=== PATIENT | female | born 1970 | race African-American/Black ===

== ENCOUNTER 2021-04-21 09:49 | Outpatient (CLI) | payer OTHER | END 2021-04-21 09:50 | disposition home or self-care (01) | LOC: DTY/OP 09:49 | PROVIDERS: ATTEND Specialist | DX: Z01.818 Encounter for other preprocedural examination (principal); E66.01 Morbid (severe) obesity due to excess calories; Z71.3 Dietary counseling and surveillance | CPT/HCPCS: 97802 ==

== ENCOUNTER 2021-12-02 10:41 | Outpatient (CLI) | payer OTHER | END 2021-12-02 10:42 | disposition home or self-care (01) | LOC: DTY/OP 10:41 | PROVIDERS: ATTEND Specialist | DX: Z01.818 Encounter for other preprocedural examination (principal); E66.01 Morbid (severe) obesity due to excess calories | CPT/HCPCS: 97802 ==

== ENCOUNTER 2021-12-27 08:54 | Outpatient (CLI) | payer OTHER | END 2021-12-27 08:55 | disposition home or self-care (01) | LOC: DTY/OP 08:54 | PROVIDERS: ATTEND Specialist | DX: Z01.818 Encounter for other preprocedural examination (principal); Z71.3 Dietary counseling and surveillance; E66.01 Morbid (severe) obesity due to excess calories; Z68.43 Body mass index [BMI] 50.0-59.9, adult | CPT/HCPCS: 97802 ==

== ENCOUNTER 2023-06-23 19:52 | Emergency (ER) | payer OTHER, SELFPAY ==
[2023-06-23] MEDS ORDERED: Dexamethasone 10 MG/ML VIAL ONE (21:11)
[2023-06-23] MEDS ORDERED: Ketorolac Tromethamine 30 MG/ML VIAL ONE (21:12)
== END 2023-06-23 22:00 | disposition home or self-care (01) ==
LOC: ERS 19:52
DX: S83.91XA Sprain of unspecified site of right knee, initial encounter (principal); M54.31 Sciatica, right side; M17.11 Unilateral primary osteoarthritis, right knee; X50.1XXA Overexertion from prolonged static or awkward postures, initial encounter
CPT/HCPCS: 96372; J1100; J1885